=== PATIENT | female | born 1935 | race Caucasian/White ===

== ENCOUNTER 2017-09-24 12:23 | Inpatient (IN) ==
[2017-09-24] MEDS ORDERED: ONDANSETRON 4 MG/2 ML VIAL IV PRN (15:34)
[2017-09-24] MEDS ORDERED: NITROGLYCERIN SL 0.4 MG TABLET SL PRN ×2 (16:08→20:07)
[2017-09-24] MEDS: SODIUM CHLORIDE 0.9% 1,000 ML IV SCH (17:50)
[2017-09-24] MEDS ORDERED: ASPIRIN CHEW 81 MG TABLET PO ONE ×2 (20:07→20:11)
[2017-09-24 20:33] LABS: Basophils % 0.4 % (0.0-0.8); Eosinophils # 0.3 10*3/uL (0.0-0.87); Eosinophils % 3.7 % (0.00-10.9); Hematocrit 39.2 VOL% (35.7-47.0); Hemoglobin 12.8 GM/DL (12.0-16.0); Immature Granulocytes % 0.1 %; Immature Granulocytes Absolute 0.01 #; Lymphocytes # 2.4 10*3/uL (1.4-4.0); Lymphocytes % 35.5 % (21.3-54.2); Mean Corpuscular HGB Conc 32.7 GM/DL (32-36); Mean Corpuscular Hemoglobin 28 PG (27-34); Mean Corpuscular Volume 86.5 FL (87-102); Mean Platelet Volume 9.2 FL (9.6-12.0); Monocytes # 0.7 10*3/uL (0.11-0.8); Monocytes % 9.7 % (1.7-12.7); Neutrophils # 3.4 10*3/uL (1.4-7.4); Neutrophils % 50.6 % (38.7-73.9); Platelet Count 183 T/CUMM (130-400); Red Blood Count 4.53 MC/CUMM (3.8-5.5); Red Cell Distribution Width 13.2 % (9.3-17.3); White Blood Count 6.8 T/CUMM (4-12)
[2017-09-24 20:57] LABS: Albumin 3.7 G/DL (3.4-5.0); Bilirubin,Total 0.4 MG/DL (0.2-1.0); Calcium 8.5 MG/DL (8.5-10.1); Osmolality,Calculated 280.4 MOS/KG (273-304); Potassium 4.3 MMOL/L (3.5-5.1); Total Protein 6.8 G/DL (6.4-8.3)
[2017-09-24] MEDS: VENLAFAXINE 75 MG TABLET PO SCH (21:06)
[2017-09-24] MEDS: FLECAINIDE 50 MG TABLET PO SCH (21:06)
[2017-09-24] MEDS: traZODone 50 MG TABLET PO SCH (21:06)
[2017-09-24] MEDS: ATENOLOL 25 MG TABLET PO SCH (21:06)
[2017-09-25 05:35] LABS: Apearance,Urine CLEAR (Clear); Bilirubin,Urine Negative (Negative); Blood, Urine Small mg/dL (Negative); Glucose,Urine (UA) Negative (Negative); Ketones,Urine Negative (Negative); Nitrite,Urine Negative (Negative); Protein,Urine Negative; RBC,Urine 2 /HPF (0-4); Urine Color Yellow (Yellow); Urine Urobilinogen < 2.0 EU/DL (0.2-1.0); WBC,Urine 1 /HPF (0-6)
[2017-09-25 06:46] LABS: Basophils % 0.6 % (0.0-0.8); Eosinophils # 0.3 10*3/uL (0.0-0.87); Hematocrit 39.7 VOL% (35.7-47.0); Hemoglobin 13.1 GM/DL (12.0-16.0); Immature Granulocytes % 0.2 %; Immature Granulocytes Absolute 0.01 #; Lymphocytes # 1.3 10*3/uL (1.4-4.0); Mean Corpuscular Hemoglobin 28 PG (27-34); Mean Corpuscular Volume 85.9 FL (87-102); Mean Platelet Volume 9.3 FL (9.6-12.0); Monocytes # 0.5 10*3/uL (0.11-0.8); Monocytes % 9.5 % (1.7-12.7); Neutrophils # 2.9 10*3/uL (1.4-7.4); Neutrophils % 57.7 % (38.7-73.9); Platelet Count 156 T/CUMM (130-400); Red Blood Count 4.62 MC/CUMM (3.8-5.5); Red Cell Distribution Width 13.2 % (9.3-17.3)
[2017-09-25 07:13] LABS: Calcium 8.3 MG/DL (8.5-10.1); Osmolality,Calculated 283.1 MOS/KG (273-304); Potassium 4.6 MMOL/L (3.5-5.1)
[2017-09-25] MEDS: PANTOPRAZOLE 40 MG VIAL IV SCH (09:13)
[2017-09-25] MEDS: FLECAINIDE 50 MG TABLET PO SCH ×2 (09:47→20:35)
[2017-09-25] MEDS: MULTIVITAMIN (CENTRUM) TABLET PO SCH (09:47)
[2017-09-25] MEDS: ASPIRIN 325 MG TABLET PO SCH (09:47)
[2017-09-25] MEDS: FAMOTIDINE 20 MG TABLET PO SCH (09:47)
[2017-09-25] MEDS: ATENOLOL 25 MG TABLET PO SCH ×2 (09:48→20:36)
[2017-09-25] MEDS: SODIUM CHLORIDE 0.9% 1,000 ML IV SCH (14:16)
[2017-09-25] MEDS: VENLAFAXINE 75 MG TABLET PO SCH (20:35)
[2017-09-25] MEDS: traZODone 50 MG TABLET PO SCH (20:36)
[2017-09-26] MEDS: SODIUM CHLORIDE 0.9% 1,000 ML IV SCH ×2 (09:32→12:22)
[2017-09-26] MEDS: ASPIRIN 325 MG TABLET PO SCH (09:32)
[2017-09-26] MEDS: ATENOLOL 25 MG TABLET PO SCH (09:32)
[2017-09-26] MEDS: FAMOTIDINE 20 MG TABLET PO SCH (09:32)
[2017-09-26] MEDS: FLECAINIDE 50 MG TABLET PO SCH (09:32)
[2017-09-26] MEDS: MULTIVITAMIN (CENTRUM) TABLET PO SCH (09:32)
[2017-09-26] MEDS: PANTOPRAZOLE 40 MG VIAL IV SCH (09:33)
[2017-09-26 16:11] VITALS: BP 134/64
== END 2017-09-26 16:20 | disposition home or self-care (01) | DRG 392 ==
LOC: EDBD → EDUNIT# → N.ED 12:23 → N.EDINP 13:59 → N.5E 16:35
PROVIDERS: ADMIT Internal Medicine Geriatric Medicine; ATTEND Internal Medicine Geriatric Medicine